=== PATIENT | female | born 1990 | race Caucasian/White ===

== ENCOUNTER 2024-05-03 05:22 | Emergency (ER) | payer SELFPAY ==
[2024-05-03 05:26] VITALS: PULSE 69; RESP 14; TEMP 36.3; O2SAT 100
--- NOTE | 2024-05-03 05:47 | ED.ANIMALBIT ---
HPI - Animal Bite General Chief Complaint: Animal Bite Stated Complaint: dog bite Time Seen by Provider: 05/03/24 05:25 History of Present Illness HPI narrative: Patient is a 34-year-old female who presents to the emergency department this morning after a dog bite to the right arm. Patient has 4 puncture wounds to the antecubital fossa and a gaping 5 cm linear laceration to the dorsum of the proximal right forearm. Patient states that 2 of her dogs got in a fight and she was trying to break them up and 1 of them bit her in the right forearm. Dogs are immunized and up-to-date with vaccinations. Patient is unsure when her last tetanus vaccine is. Denies any additional symptoms or concerns at this time. Related Data Home Medications Medication Instructions Recorded Confirmed norethindrone 1 mg-ethinyl 1 tablet PO DAILY 07/05/19 estradiol 10 mcg (24)-iron 10 mcg(2) tablet (Lo Loestrin Fe) Allergies Allergy/AdvReac Type Severity Reaction Status Date / Time sulfamethizole Allergy Unknown Unknown Verified 09/11/21 08:32 sulfamethoxazole Allergy Unknown Unknown Verified 09/11/21 08:32 trimethoprim Allergy Unknown Unknown Verified 09/11/21 08:32 Review of Systems Review of Systems: All systems are reviewed and are negative unless stated otherwise in the HPI. PMFSH Family History Family History Mother High cholesterol Father High cholesterol Hypertension Diabetes mellitus Glaucoma Social History Social History Smoking status: Never smoker Alcohol intake: current Alcohol use details: 1-2 a month Substance use: never Exam Narrative: General: Alert, awake, afebrile, in no acute distress. HEENT: PERRL, no rhinorrhea, no post nasal drip, oropharynx clear. Cardiovascular: Regular rate and rhythm, no murmurs, rubs or gallops, no peripheral edema. Respiratory: Clear to auscultation bilaterally, no tachypnea, no wheezing, no rhonchi, no rubs, no respiratory distress. Abdomen: Soft, nontender, nondistended, no rebound, no guarding, no peritoneal signs. Musculoskeletal: No joint swelling or deformity, normal muscle tone. Skin: Four puncture wound to the right antecubital fossa largest measuring 1 cm and 5 cm gaping linear laceration to the dorsum of the proximal right forearm, no active bleeding, patient is neurovascularly intact. Psychiatric: Alert and oriented, normal behavior and judgment for situation. Neurological: Alert and oriented to person, place, and time. Follows all commands. No focal deficits, speech is clear and fluent. Course Vital Signs Vital signs: Vital Signs Temperature 97.4 F L 05/03/24 05:26 Pulse Rate 69 05/03/24 05:26 Respiratory Rate 14 05/03/24 05:26 Pulse Oximetry 100 05/03/24 05:26 Oxygen Delivery Room Air 05/03/24 05:26 Temperature 97.4 F L 05/03/24 05:26 Pulse Rate 69 05/03/24 05:26 Respiratory Rate 14 05/03/24 05:26 Pulse Oximetry 100 05/03/24 05:26 Oxygen Delivery Room Air 05/03/24 05:26 Procedures Laceration Laceration 1: Date: 05/03/24 Time: 06:40 Site: upper extremity Side (If applicable): right Size (cm): 2 Description: irregular Depth: simple, single layer Local Anesthetic: lidocaine 1% Amount of anesthesia used (mL): 1 ====== Skin Level ====== Skin layer closed with: nylon Size (cm): 4-0 Number of sutures: 1 Technique: other (Loose approximation) ====== Subcutaneous Layer ====== ====== Muscle Layer ====== ====== Tendon Layer ====== Laceration 2: Date: 05/03/24 Time: 06:41 Site: upper extremity Side (If applicable): right Size (cm): 5 Description: linear Depth: simple, single layer Local Anesthetic: lidocaine 1% Amount of anesthesia used (mL): 4 Pre-repair: wound explored, irrigated, irrigated extensively, minor debridement and deep structures intact ====== Skin Level ====== Skin layer closed with: nylon Size (cm): 4-0 Number of sutures: 3 Technique: other (Loose approximation) ====== Subcutaneous Layer ====== ====== Muscle Layer ====== ====== Tendon Layer ====== MDM - Animal Bite MDM Narrative Medical decision making narrative: The patient was evaluated by myself in the emergency department. History is obtained from patient who is an independent historian and physical exam was performed. External medical records were reviewed at this time. Patient was administered an oral [place] 5-325 mg, tetanus updated and she was administered her 1st dose of Augmentin in the emergency department. Patient was informed at that dog bites are considered dirty wounds and for the most part are only closed if they are gaping. Patient's largest puncture wound which measured 1 cm was loosely approximated with 1 suture and the 5 cm gaping wound was loosely approximated with 3 sutures. Differential diagnosis considerations include lacerations, abrasions, dog bite. Comorbidities impacting this visit include none. I have evaluated and discussed social determinants of health with the patient that could potentially impact subsequent diagnosis and treatment plans. On repeat assessment of the patient, reevaluation revealed that the patient is doing well and is in no acute distress. Patient symptoms have improved since she arrived to our emergency department. Repeat vital signs were all reviewed and noted to be stable with a blood pressure of 99/70 with a map of 77, heart rate of 69, respiratory rate of 14, temperature of 97.4? and 100% on room air.. Differential diagnosis and treatment plan were discussed with the patient at bedside. Patient agrees with discussion and after shared medical decision making agrees with discharge. All questions were answered to the patient's satisfaction. Patient will follow up with her primary care physician within the next week. She was informed that the 4 sutures that were placed today need to be removed by medical professional within the next 7-10 days. A script for Augmentin was sent to her pharmacy and she was instructed to take as prescribed. Patient was provided with strict return precautions and instructed to return to the emergency department if any new or worsening symptoms develop. The patient was discharged in stable condition. Discharge Plan Discharge Clinical Impression: Dog bite, Laceration Patient Disposition: Home, Self-Care Condition: Improved Instructions: Antibiotic Form, Animal Bite (ED), Care For Your Stitches (ED), Laceration (ED) Additional Instructions: Please follow-up with your family doctor within the next week. The stitches that were placed today need to be removed by medical professional within the next 7-10 days. Take the prescribed antibiotic as instructed. Return to the emergency department if any new or worsening symptoms develop. Prescriptions: New amoxicillin-pot clavulanate 875-125 mg tablet 1 tablet PO Q12H 10 Days Qty: 20 0RF No Action Lo Loestrin Fe 1 mg-10 mcg (24)/10 mcg (2) tablet 1 tablet PO DAILY Follow-up/Referrals: Jose Canales DO [Physician] - 1 Week PHYSICIAN NOT ON STAFF,NONSTAFF [Primary Care Provider] - Time of Disposition: 06:46
[2024-05-03] MEDS: AMOXICILLIN/CLAVULANATE K 875-125 MG TAB 1 TABLET PO (05:54)
[2024-05-03] MEDS: TETANUS,DIPHTHERIA,AC PERTUSSIS ADULT (0.5 ML) BOOSTRIX IM (05:55)
[2024-05-03] MEDS: HYDROcodone/acetaminophen (*CRX) 5-325 MG TABLET 1 TAB PO (05:58)
== END 2024-05-03 06:41 | disposition home or self-care (01) ==
PROVIDERS: Emergency Provider Emergency Medicine
DX: S51.851A Open bite of right forearm, initial encounter (principal); W54.0XXA Bitten by dog, initial encounter; Z23 Encounter for immunization
CPT/HCPCS: 12004; 90471; 90715; 99283; A9270